=== PATIENT | female | born 1955 | race Caucasian/White ===

== ENCOUNTER 2019-09-18 11:36 | Observation (INO) ==
--- NOTE | 2019-09-18 12:09 | EKG Report ---
Test Performed on : 09/18/2019 11:59:19 AM Test Reason : high b/p Blood Pressure : / mmHG Vent. Rate : 077 BPM Atrial Rate : 077 BPM P-R Int : 158 ms QRS Dur : 078 ms QT Int : 416 ms P-R-T Axes : 032 -07 029 degrees QTc Int : 470 ms Normal sinus rhythm. Normal ECG No previous ECGs available Unconfirmed Result
[2019-09-18] MEDS ORDERED: EPINEPHRINE SUBQ ONE ×2 (12:13→16:52)
[2019-09-18] MEDS ORDERED: SODIUM CHLORIDE 0.9% INJ ONE (12:13)
[2019-09-18] MEDS ORDERED: PEPCID IV ONE (12:13)
[2019-09-18] MEDS ORDERED: DECADRON IV ONE ×2 (12:13→16:52)
[2019-09-18 12:27] LABS: BASO# 0.02 X1000 (0.0-0.2); BASO% 0.2 % (0.0-0.8); EOS# 0.17 X1000 (0.0-0.7); EOS% 2.1 % (0.0-10.0); HEMATOCRIT 43.9 % (37.0-47.0); HEMOGLOBIN 14.2 g/dL (12.0-16.0); IMM GRAN# 0.03 X1000 (0.0-0.04); IMM GRAN% 0.4 % (0.0-0.5); LYMPH# 1.85 X1000 (1.2-3.4); LYMPH% 22.5 % (20.5-51.1); MCH 29.2 PG (27-31); MCHC 32.3 g/dL (33-37); MCV 90.1 FL (81-99); MONO# 0.67 X1000 (0.11-0.59); MONO% 8.2 % (1.7-9.3); MPV 10.6 FL (7.4-10.4); NEUT# 5.48 X1000 (1.4-6.5); NEUT% 66.6 % (42.2-75.2); PLT 251 X1000 (130-400); RBC 4.87 XMIL (4.2-5.4); RDW 12.8 % (11.5-14.5); WBC 8.22 X1000 (4.8-10.8)
[2019-09-18 12:52] LABS: AGAP 13; ALB/GLOB RATIO 1.5; ALBUMIN 4.3 g/dL (3.5-5.0); ALKALINE PHOSPHATASE 117 U/L (32-104); BUN 19 mg/dL (8-22); CALCIUM 9.7 mg/dL (8.8-10.2); CHLORIDE 101 mmol/L (98-107); COSMO 284; CREATININE 0.9 mg/dL (0.5-0.9); ESTIMATED GFR > 60; GLUCOSE 100 mg/dL (70-104); GOT 18 U/L (10-30); GPT 23 U/L (10-36); SODIUM 141 mmol/L (136-145); TCO2 27 mmol/L (25-35); TOTAL BILIRUBIN 0.18 mg/dL (0.20-1.00); TOTAL PROTEIN 7.2 g/dL (6.3-8.3)
--- NOTE | 2019-09-18 18:23 | PROVIDER DOCUMENTATION ---
This chart was entered by Rosa Plummer Scribe, acting as scribe for Markus Sanchez MD. HPI-General Adult - General Chief Complaint: Tongue Swelling Stated Complaint: ALLERGIC REACTION Time Seen by Provider: 09/18/19 12:03 Source: patient Allergies/Adverse Reactions: Patient Allergies Allergy/AdvReac Type Severity Reaction Status Date / Time Sulfa (Sulfonamide Allergy NAUSEA Verified 09/18/19 12:01 Antibiotics) Home Medications: Home Medication List Medication Instructions Recorded Confirmed Last Taken Type Vit A/Vit C/Vit E/Zinc/Copper 1 cap PO DAILY 09/18/19 09/18/19 09/18/19 History [Preservision Areds Softgel] - History of Present Illness -Gen Adult Nature of Presenting Problems: 63 yowf presents to the ed with c/o angioedema noted this am @ 0700am. pt sts she woke at 0530am and was normal then noted itching and swelling of left eyelid. pt then at 0700am took half of a 25mg Benadryl with no relief of sx. about 1100am pt noted her speech becoming thick due to her tongue swelling so she came to ed. pt denies taking any daily medications of then a vitamin for her eyes which she has taken for 2 years. pt denies any airway compromise and no sob. pt denies any new food or known allergen Location of Pain/Injury: reports: mouth (tongue), other (left upper eyelid) Quality of Pain: reports: fullness Severity: reports: moderate Onset/Duration: reports: this morning (0700am) Timing: reports: still present, constant, getting worse Context/Activities at Onset: reports: light activity Modifying Factors: improves with: nothing Associated Symptoms: reports: denies symptoms Similar Symptoms Previously?: No Recently seen or treated by another doctor?: No Review of Systems - Adult - REVIEW OF SYSTEMS - ADULT Constitutional: denies: chills, fever Eyes: reports: see HPI, other (left upper eyelid swelling and itching) Ears, Nose, Mouth & Throat: reports: see HPI, other (angioedema of tongue). denies: hoarseness, throat pain, throat swelling Cardiovascular: denies: chest pain, palpitations Respiratory: denies: cough, shortness of breath, wheezing Gastrointestinal: denies: abdominal pain, diarrhea, nausea, vomiting Genitourinary: reports: no symptoms reported Musculoskeletal: reports: no symptoms reported Integumentary: reports: see HPI, itching. denies: hives, rash, skin sores/ulcer Neurological: denies: dizziness/vertigo, headache/migraines Psychiatric: reports: no symptoms reported Endocrine: reports: no symptoms reported Hematologic/Lymphatic: reports: no symptoms reported Allergic/Immunologic: reports: no symptoms reported All Other Systems: Reviewed and Negative Past History - Adult - PAST MEDICAL HISTORY-ADULT Review of Records: reports: Old Records Reviewed, Nursing Assessment Review, Medications Reviewed, Social history reviewed & non-contributory. Major Childhood Illnesses: reports: denies history Cardiovascular: reports: denies history Respiratory: reports: denies history Gastrointestinal: reports: denies history Obstetrical/Gynecological: reports: denies history Genitourinary: reports: denies history Musculoskeletal: reports: denies history Hand Dominance: Right Handed Neurological: reports: denies history Psychiatric: reports: denies history Endocrine/Immune: reports: denies history Other Conditions: reports: denies history - PRIOR SURGERIES/PROCEDURES Surgical/Procedure History: reports: none - IMMUNIZATION STATUS Childhood Immunizations: See Nurse Assessment Flu Vaccine: See Nurse Assessment - FAMILY HISTORY Family History: reviewed, not pertinent - SOCIAL HISTORY Smoking: denies Substance Use: alcohol Alcohol Use Frequency: occasionally Number of drinks per typical drinking period:: 3-4 drinks Living Situation: family Physical Exam-General - PHYSICAL EXAM-ADULT Initial Vital Signs Reviewed: Yes (noted BP 200/95 o2 95% on RA) - CONSTITUTIONAL General Appearance: appears well, alert, no apparent distress, obese - EYES Eyes: PERRL/EOMI, pink conjunctivae - HEAD, EARS, NOSE, MOUTH & THROAT HENMT: moist mucous membranes, TMs normal, angioedema (left upper eyelid and tongue). negative: pharyngeal erythema, tonsillar exudate - NECK Neck: non-tender, full range of motion, supple, normal inspection - RESPIRATORY Respiratory: chest non-tender, lungs clear, normal breath sounds - CARDIOVASCULAR Cardiovascular: normal peripheral pulses, regular rate, rhythm - CHEST (BREASTS) Chest/Breast: deferred - GASTROINTESTINAL (ABDOMEN) Abdominal Exam: normal bowel sounds, non tender, soft - GENITOURINARY Female Genitalia/Pelvic Exam: deferred Rectal Exam: deferred Hemoccult Exam: deferred - LYMPHATIC Lymphatic: no adenopathy - MUSCULOSKELETAL Back Exam: normal inspection, no CVA tenderness, no vertebral tenderness Extremity: normal range of motion, non-tender, normal gait, normal inspection - SKIN Integumentary: normal color, normal turgor, warm/dry - NEUROLOGIC Neurologic: grossly normal - PSYCHIATRIC Psych/Mental Status: normal mood/affect, normal thought content, normal thought process, oriented x 3 Progress - PLAN OF CARE/RESULTS Progress/Plan/Lab Results: Vital Signs - 8 hr 09/18/19 11:41 Temperature 97.9 F Pulse Rate 89 Respiratory Rate 16 Blood Pressure 200/95 O2 Sat by Pulse Oximetry 95 Laboratory Results - last 24 hr 09/18/19 12:20 WBC 8.22 RBC 4.87 Hgb 14.2 Hct 43.9 MCV 90.1 MCH 29.2 MCHC 32.3 L RDW Std Deviation 12.8 Plt Count 251 MPV 10.6 H Immature Gran % (Auto) 0.4 Neut % (Auto) 66.6 Lymph % (Auto) 22.5 [place] % (Auto) 8.2 Eos % (Auto) 2.1 Baso % (Auto) 0.2 Immature Gran # (Auto) 0.03 Neut # (Auto) 5.48 Lymph # (Auto) 1.85 [place] # (Auto) 0.67 H Eos # (Auto) 0.17 Baso # (Auto) 0.02 Orders Category Date Time Status Cardiac Monitoring DIRECTED Care 09/18/19 12:12 Active CBC WITH DIFF [HEME] Stat Lab 09/18/19 12:20 Completed COMPREHENSIVE METABOLIC PANEL [CHEM] Stat Lab 09/18/19 12:20 Received Dexamethasone [Decadron] Med 09/18/19 12:13 Discontinued 4 mg IV NOW ONE Epinephrine Med 09/18/19 12:13 Discontinued 0.3 mg SUBQ NOW ONE Famotidine [Pepcid] Med 09/18/19 12:13 Discontinued 20 mg IV NOW ONE Sodium Chloride 0.9% Med 09/18/19 12:13 Discontinued 5 - 10 ml INJ NOW ONE Pulse Oximetry Stat Oth 09/18/19 12:12 Active EKG [EKG] Stat Ther 09/18/19 11:[address] sanchez is at bedside with pt and had lengthy conversation about the seriousness of this were to worsen. pt has had improvement while being in the ed and angioedema of tongue is still present but much improved. pt declined to be admitted and sts '[place] close, so if I get worse I will come back" pt verbalized understanding of dr sanchez desire to admit and declined again. pt when d/c had no airway compromise and was nontoxic in appearance Result Diagrams: 09/18/19 12:20 09/18/19 12:20 - REASSESSMENT Reassessment #1 Time Reassessed: 13:51 (pt sts she feels better and the tounge swelling has decreased by 30% but still obviously swollen. pt speech has cleared gisela as well. pt sts she does not want to be admitted so she will be watched to see if she continous to improve and if so may can be dc home) Status: improving (dr sanchez at bedside) Reassessment #2 Time Reassessed: 16:51 (pt now feels itching in her throat and feels the swelling is worsening so has decided to stay and be admitted) Status: worsening (dr sanchez at bedside) - EKG 1 Time of EKG reading by physician:: 11:59 EKG Read and Signed by:: Markus Sanchez EKG Interpretation (*Must complete 3 of following elements*): Normal Rate: 77 Rhythm: nsr [place]: normal QRS: normal [place] Interval: normal ST Wave: normal - CONSULTS/PCP/HOSPITALIST Notification #1 *Consult/PCP/Hospitalist*: hospitalist dr suh Time Discussed: 16:58 (spoke with hillary ) Reason/Comments: angioedema Consult Disposition: Admit Departure - Departure Date of Disposition Decision: 09/18/19 Time of Disposition Decision: 16:33 DIAGNOSIS: Angioedema Qualifiers: Encounter type: initial encounter Qualified Code(s): T78.3XXA - Angioneurotic edema, initial encounter Disposition: ADMITTED INPATIENT 09 Certified Medical Emergency: Emergent Condition: Stable Additional Instructions: ED Follow Up Instructions: You have been treated by a care provider in the Emergency Department. These instructions are being provided to you so you can have an understanding of how to care for yourself upon discharge. Upon discharge from the Emergency Department, you are responsible for making arrangements for follow-up care by a physician of your choice. Take all prescribed medications as directed. Return to the Emergency Department immediately for any new or worsening symptoms. You may call the Physician Referral phone number at [phone] to obtain a list of Physicians who are taking new patients. Referrals and Follow-Ups: Miguelangel Smalls MD [Primary Care Provider] - Discharge Education: Angioedema, [id number] - Critical Care Note This patient required my direct & personal management of CC.: No Attestation - Physician/ STERLING Attestation Patient care was provided by Advanced Practice Provider:: No The physician spent face to face time with patient:: Yes Advanced Practice Provider documentation review:: Supervising physician onsite and consulted in the evaluation and care of this patient. The physician did have a face to face encounter with the patient. This chart was documented by the indicated scribe, (Rosa Plummer Scribe) and accurately reflects the services I performed and decisions made by me, Markus Sanchez MD, as attested by the provider's signature.
[2019-09-18] MEDS ORDERED: ZOFRAN IV PRN (19:16)
[2019-09-18] MEDS ORDERED: SODIUM CHLORIDE 0.9% INJ SCH (19:16)
[2019-09-18] MEDS ORDERED: TYLENOL PO PRN (19:16)
[2019-09-18] MEDS: SOLU-MEDROL IV SCH ×2 (20:19)
--- NOTE | 2019-09-18 21:58 | HISTORY AND PHYSICAL ---
PRIMARY CARE PHYSICIAN: Dr. Miguelangel Smalls. CHIEF COMPLAINT: Of angioedema after waking up this morning around 7 a.m. noting itching and swelling of the left eyelid and her tongue began to swell. HISTORY OF PRESENTING ILLNESS: This is a 63-year-old female who presents to [facility] with no prior medical history. States that she woke up this morning around 5:30 a.m. and had some itching and swelling of her left eyelid. At 7 a.m. she took a 25 mg Benadryl with no relief. Around 11 a.m. she noted that her tongue was thick and swelling and she was having difficulty talking. States that the only medication she takes is a vitamin for her eyes. She denied any recent changes in soaps, detergents, no new foods, spices, states she is only allergic to sulfa drugs. Has not been sick recently. When she first arrived to the emergency room she was given Pepcid 20 mg IV x1, epinephrine 0.3 mg subcu x1 and Decadron 4 mg IV x1. They were watching her closely and she seemed to be doing a little bit better. Were considering discharging her when she stated that her tongue was beginning to feel thick and itchy in the back of her throat again so it was felt that she needed to be admitted and observed overnight for further evaluation and treatment. PAST MEDICAL HISTORY: None. PAST SURGICAL HISTORY: None. FAMILY HISTORY: Of diabetes, heart disease and hypertension. SOCIAL HISTORY: She currently lives with family. Denies any tobacco, alcohol or illicit drug use. 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 ALLERGIES: Sulfa. HOME MEDICATIONS: She takes a vitamin for her eye but we will hold that at this time. LABORATORY DATA: Showed a white blood cell count of 8.22, hemoglobin 14.2, hematocrit 43.9, platelets 251,000. Sodium 141, potassium 4, chloride 101, CO2 27, BUN of 19, creatinine 0.9, glucose 100. EKG showed normal sinus rhythm at 77. REVIEW OF SYSTEMS: She denied any fever, chills, blurred vision, dizziness. She did have swelling to her left eye, tongue feeling thick and itching in the back of her throat. Denies any shortness of breath, cough, chest pain, abdominal pain, nausea, vomiting, constipation, diarrhea, burning or hurting with urination. PHYSICAL EXAMINATION: On arrival she had a temperature of 97.9 degrees, pulse 89, respirations 16, blood pressure was 200/95, saturating 95% on room air. Currently blood pressure is down to 153/98. GENERAL: This is a 63-year-old female who is lying in the bed and answers questions appropriately. HEENT: Normocephalic, atraumatic. Normal ENT inspection. Oropharynx and nares are clear. Pupils are equal, round, reactive to light and accommodation. Extraocular movements are intact. NECK: Normal inspection, normal range of motion. LUNGS: Clear to auscultation bilaterally with equal lung expansion and chest wall movement. HEART: Regular rate and rhythm. No murmurs, rubs, or gallops. ABDOMEN: Soft, nontender, nondistended. Bowel sounds are present x4 quadrants. NEUROLOGICAL: The cranial nerves 2-12 appear grossly intact. ASSESSMENT: 1. Unknown allergic reaction. 2. Angioedema. OUR PLAN: She will be admitted for observation. We will give her Solu-Medrol 40 mg IV q.6, Pepcid 20 mg IV q.12 and monitor closely. If she is improved in the a.m. she should be able to be discharged home tomorrow. Dictated by CHRYSTAL Calderón for Ramon Linares MD cc: MD Ramon García MD
[2019-09-19] MEDS ORDERED: PEPCID IV SCH
[2019-09-19] MEDS: SOLU-MEDROL IV SCH ×2 (02:40→09:55)
--- NOTE | 2019-09-19 03:53 | HISTORY AND PHYSICAL ---
ADDENDUM: Patient seen and examined by me [id number]. All the laboratory and vital signs were reviewed. She does not have images at this moment, and her lungs are clear. I do not believe we need one at this moment. Actually my physical exam is benign. This patient came to the emergency department with chief complaint of tongue swelling that started happening this morning when she woke up. As per the patient, yesterday she was fine and today when she woke up she was feeling some itchiness at the level of the ears, mostly on the left side, and then the left side of the face, and then her tongue in the back of the tongue. Then she started feeling the tongue to be swollen and she was having problems talking. 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 Vital signs are stable, but she came in with elevated blood pressure. The blood pressure when she came in, in the morning was around 200/95. At this moment it is 153/98. Pulse, respiratory rate and oxygen saturation are normal on room air. EKG showed normal sinus rhythm. Like I mentioned before, my physical exam is benign. She received some treatment here in the emergency department, epinephrine, Decadron and Pepcid. She was feeling better and actually the swelling looks like it is better as well, but then when she was about to be discharged she started itching again, mostly the back of her tongue. I was called to evaluate this patient. We will admit this patient and put her on steroids scheduled. Also Pepcid as well. Hopefully tomorrow this patient will be discharged home if everything is okay with a short course of steroids and PPIs as well, H2 blockers. She seems to be stable. She is not taking any kind of medications at home. I agree with the rest of the nurse practitioner's assessment and plan. cc: Ramon Linares MD
[2019-09-19 09:19] VITALS: BP 148/82
--- NOTE | 2019-09-20 04:36 | DISCHARGE SUMMARY ---
ADMISSION DATE: 09/18/2019 DISCHARGE DATE: 09/19/2019 DISCHARGE DIAGNOSIS: Angioedema, unknown cause. HOSPITAL COURSE: A 63-year-old female with a past medical history of obesity, presented to the emergency department with a chief complaint of tongue swelling/angioedema. Apparently, she woke up the morning of admission, on 09/18/2019 at 5:30 a.m., complaining of some itchiness and swelling of her left eyelid. Then at 7 a.m., she took 25 mg of Benadryl with no relief. The same morning at around 11 a.m., she noted her tongue was thick and swollen and she was having difficulty talking. She states that the only medication she takes is a vitamin for her eyes. She denies any recent changes in soaps, detergents or no new foods or spices. She states that the she is only allergic to SULFA DRUGS. She has not been sick recently and she does not have any family member around that have been sick. When she came to the emergency department, she received Pepcid 20 mg IV x1, epinephrine 0.3 mg subcutaneously x1 and Decadron 4 mg IV x1. They were watching this patient closely and she was doing better. When they decided to discharge this patient home, she was feeling again an uneasy sensation and like her tongue was swelling again, so we admitted this patient to the medical floor. We put her on a scheduled steroid and H2 blockers. Today, she is asymptomatic, I talked to the patient about her further treatment. We have decided to discharge this patient with a short course of steroids and H2 blockers, she understand and she agreed with the plan. PHYSICAL EXAMINATION: Vital signs: Temperature 98.6 degrees, pulse 99, respiratory rate 18, blood pressure 148/82, oxygen saturation 100% on room air. HEENT: Head normocephalic, atraumatic. PERRLA. Neck: Supple. No JVD. No masses. Central trachea. Chest: Clear to auscultation. No wheezing. No rales. Abdomen: Soft, nontender, nondistended. No hepatosplenomegaly. Extremities: No edema, no clubbing, no cyanosis. Neurological: The patient is alert. She is oriented x3. No focal deficits. LABORATORY: From yesterday, WBC 8.2, hemoglobin 14.2, hematocrit 43.9, platelet 251,000. Sodium 141, potassium 4, chloride 101, bicarbonate 27, BUN 19, creatinine 0.9. DISCHARGE MEDICATIONS: 1. Famotidine 20 mg p.o. b.i.d. 2. Medrol Dosepak as directed. 3. PreserVision AREDS soft gel 1 capsule p.o. daily. cc: Ramon Linares MD
== END 2019-09-19 11:05 | disposition home or self-care (01) ==
LOC: ED 11:36 → INTOOBSV 18:31 → 3N 18:31
PROVIDERS: ATTEND Internal Medicine